=== PATIENT | male | born 1990 | race Caucasian/White ===

== ENCOUNTER 2020-11-11 15:02 | Emergency (ER) | payer OTHER ==
[~2020-11-11] VITALS: Ht 175.3 cm; Wt 56.7 kg
[2020-11-11 17:53] VITALS: BP 132/81
== END 2020-11-11 17:54 | disposition home or self-care (01) ==
LOC: ER 15:12
DX: S16.1XXA Strain of muscle, fascia and tendon at neck level, initial encounter (principal); S29.012A Strain of muscle and tendon of back wall of thorax, initial encounter; R51.9 Headache, unspecified; V43.92XA Unspecified car occupant injured in collision with other type car in traffic accident, initial encounter; Y92.488 Other paved roadways as the place of occurrence of the external cause; M41.9 Scoliosis, unspecified
CPT/HCPCS: 70450; 72125; 72128; 99283